=== PATIENT | male | born 1985 | race Caucasian/White ===

== ENCOUNTER → 2022-05-05 17:11 | Outpatient (CLI) | payer BC, SELFPAY ==
[2022-05-05 18:16] LABS: Basophils # 0.1 K/mm3 (0-0.2); Basophils % 1.2 % (0.1-2.0); Eosinophils # 0.3 K/mm3 (0.0-0.4); Eosinophils % 3.3 % (0.1-12.0); Hematocrit 50.3 % (42.0-52.0); Lymphocytes # 2.1 K/mm3 (0.7-4.5); Lymphocytes % 26.4 % (10-50); Mean Corpuscular HGB Conc 33.8 g/dL (31.8-35.4); Mean Corpuscular Hemoglobin 31.4 pg (27.0-31.2); Mean Platelet Volume 8.5 fl (7.4-10.4); Monocytes # 0.4 K/mm3 (0.1-1.0); Monocytes % 5.3 % (1.7-9.3); Neutrophils % 63.7 % (37.0-80.0); Platelet Count 259 K/mm3 (142-424); Red Blood Count 5.41 M/mm3 (4.60-6.20); Red Cell Distribution Width 13.2 % (11.5-17.5); White Blood Count 7.8 K/mm3 (4.8-10.8)
[2022-05-05 19:03] LABS: Alanine Aminotransferase 96 U/L (12-78); Albumin Level 4.5 g/dl (3.5-5.0); Albumin/Globulin Ratio 1.6 (1.1-1.8); Alkaline Phosphatase 105 U/L (38-126); Anion Gap 9.2 mEq/L (5-15); Aspartate Amino Transferase 100 U/L (17-59); Bilirubin,Total 0.7 mg/dl (0.2-1.3); Blood Urea Nitrogen 9 mg/dl (9-20); Calcium 9.8 mg/dl (8.4-10.2); Carbon Dioxide 34 mmol/L (22.0-30.0); Chloride 99 mmol/L (98-107); Chol/HDL Ratio 5.1 (1-3.5); Cholesterol 219 mg/dl (140-200); Estimated Glomerular Filt Rate 152 ml/min (>60); GFR (African American) 183 ML/MIN (>60); Globulin 2.9 g/dL (1.3-3.2); Glucose 213 mg/dl (74-100); HDL Cholesterol 43 mg/dl (40-60); Potassium 4.2 mmoL/L (3.5-5.1); Sodium 138 mmol/L (136-145); Total Protein,Serum 7.4 g/dl (6.3-8.2); Triglycerides 240 mg/dl (30-150); VLDL Cholesterol 48 mg/dL (0-40)
[2022-05-07 09:35] LABS: Direct LDL Cholesterol 126 mg/dL (100-129)
== END ==
PROVIDERS: Student in an Organized Health Care Education/Training Program; PCP Family Medicine; Visit Provider Family Medicine
DX: Z76.89 Persons encountering health services in other specified circumstances (principal); I10 Essential (primary) hypertension; E78.5 Hyperlipidemia, unspecified; R73.03 Prediabetes
CPT/HCPCS: 80053; 80061; 85025

== ENCOUNTER → 2022-05-12 06:30 | Outpatient (CLI) | payer BC, SELFPAY ==
[2022-05-12 20:29] LABS: Hemoglobin A1C 8.3 % (4.0-6.0)
== END ==
PROVIDERS: PCP Family Medicine; Visit Provider Student in an Organized Health Care Education/Training Program
DX: E11.9 Type 2 diabetes mellitus without complications (principal); Z79.84 Long term (current) use of oral hypoglycemic drugs
CPT/HCPCS: 83036

== ENCOUNTER 2023-09-06 10:12 | Emergency (ER) | payer BC, SELFPAY ==
[2023-09-06 10:12] VITALS: BP 164/104; PULSE 109; RESP 18; TEMP 36.9; O2SAT 97; BMI 33.4
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
--- NOTE | 2023-09-06 10:20 | PC.NURSE ---
PT gone to CT via stretcher
--- NOTE | 2023-09-06 10:22 | PC.NURSE ---
PT TO CT
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
--- NOTE | 2023-09-06 10:57 | PC.NURSE ---
PT DOES NOT WANT AN IV HE REQUEST MEDS BY MOUTH . SPOKE WITH DR CEDILLO SHE IS AWARE
--- NOTE | 2023-09-06 11:14 | PC.NURSE ---
Shahram calling to speak with Dr Espinoza
--- NOTE | 2023-09-06 11:16 | PC.NURSE ---
DR CEDILLO AT BEDSIDE TO UPDATE PT AND FAMILY
[2023-09-06 11:19] VITALS: BP 155/106; PULSE 94; O2SAT 97
[2023-09-06 11:27] VITALS: BP 155/106; PULSE 94; RESP 18; TEMP 36.7; O2SAT 98
== END 2023-09-06 11:27 | disposition home or self-care (01) ==
PROVIDERS: Emergency Provider Emergency Medicine; PCP Family Medicine
DX: S16.1XXA Strain of muscle, fascia and tendon at neck level, initial encounter (principal); M25.561 Pain in right knee; V57.5XXA Driver of pick-up truck or van injured in collision with fixed or stationary object in traffic accident, initial encounter; I10 Essential (primary) hypertension; E78.5 Hyperlipidemia, unspecified; R73.03 Prediabetes
CPT/HCPCS: 70450; 71250; 72125; 72128; 73562; 96374; 99285

== ENCOUNTER 2024-04-01 10:29 | Outpatient (CLI) | payer OTHER, SELFPAY ==
[2024-04-01 11:12] LABS: Basophils # 0.1 K/mm3 (0-0.2); Basophils % 1.2 % (0.1-2.0); Eosinophils # 0.1 K/mm3 (0.0-0.4); Eosinophils % 2.1 % (0.1-12.0); Hemoglobin 15.4 g/dL (14.1-18.0); Lymphocytes # 1.9 K/mm3 (0.7-4.5); Mean Corpuscular HGB Conc 33.5 g/dL (31.8-35.4); Mean Corpuscular Hemoglobin 31.1 pg (27.0-31.2); Mean Corpuscular Volume 92.9 fl (80-94); Mean Platelet Volume 8.1 fl (7.4-10.4); Monocytes # 0.4 K/mm3 (0.1-1.0); Monocytes % 6.4 % (1.7-9.3); Neutrophils # 3.9 K/mm3 (1.8-7.8); Neutrophils % 60.3 % (37.0-80.0); Platelet Count 236 K/mm3 (142-424); Red Blood Count 4.95 M/mm3 (4.60-6.20); Red Cell Distribution Width 13.5 % (11.5-17.5); White Blood Count 6.4 K/mm3 (4.8-10.8)
[2024-04-01 11:43] LABS: Hemoglobin A1C 6.3 % (4.0-6.0)
[2024-04-01 11:59] LABS: Alanine Aminotransferase 29 U/L (12-78); Albumin Level 4.6 g/dl (3.5-5.0); Albumin/Globulin Ratio 1.6 (1.1-1.8); Alkaline Phosphatase 66 U/L (38-126); Anion Gap 11.4 mEq/L (5-15); Aspartate Amino Transferase 28 U/L (17-59); Bilirubin,Total 0.8 mg/dl (0.2-1.3); Blood Urea Nitrogen 15 mg/dl (9-20); Calcium 9.8 mg/dl (8.4-10.2); Carbon Dioxide 29 mmol/L (22.0-30.0); Chloride 103 mmol/L (98-107); Chol/HDL Ratio 4.3 (1-3.5); Cholesterol 213 mg/dl (140-200); Estimated Glomerular Filt Rate 126 ml/min (>60); GFR (African American) 152 ML/MIN (>60); Globulin 2.9 g/dL (1.3-3.2); Glucose 119 mg/dl (74-100); HDL Cholesterol 49 mg/dl (40-60); Potassium 4.4 mmoL/L (3.5-5.1); Sodium 139 mmol/L (136-145); Total Protein,Serum 7.5 g/dl (6.3-8.2); Triglycerides 165 mg/dl (30-150); VLDL Cholesterol 33 mg/dL (0-40)
[2024-04-01 12:11] LABS: Direct LDL Cholesterol 125.73 mg/dL (100-129)
[2024-04-01 12:14] LABS: Free Thyroxine Index 2.5 ug/dL (5.93-13.13); T4 (Thyroxine) 7.2 ug/dl (5.53-11.0); Triiodothryronine (T3) Uptake 35 % (23.5-40.5)
[2024-04-01 12:19] LABS: 25-OH Vitamin D, Total 31.9 ng/mL (30-100)
[2024-04-01 12:28] LABS: Thyroid Stimulating Hormone 0.34 uIU/mL (0.465-4.68)
[2024-04-01 12:32] LABS: Thyroid Stimulating Hormone 0.33 uIU/mL (0.465-4.68)
== END 2024-04-01 23:59 | disposition home or self-care (01) ==
LOC: LAB 10:30
PROVIDERS: PCP Family Medicine; Visit Provider Nurse Practitioner Family
DX: I10 Essential (primary) hypertension (principal); E78.5 Hyperlipidemia, unspecified; E11.9 Type 2 diabetes mellitus without complications; Z79.84 Long term (current) use of oral hypoglycemic drugs; R53.83 Other fatigue; Z68.32 Body mass index [BMI] 32.0-32.9, adult; E66.9 Obesity, unspecified
CPT/HCPCS: 36415; 80050; 80053; 80061; 82306; 83036; 84436; 84443; 84479; 85025

== ENCOUNTER 2025-03-03 09:00 | Outpatient (CLI) | payer OTHER, SELFPAY ==
--- OUTSIDE RECORDS SUMMARY | 2021-12-24 04:13 | XMS_ITS | Continuity of Care Document ---
Author Organization [facility] Address [address] [facility] [address] [place] [address] Phone Care Team Providers Care Sand Temperer Name Role Phone Bandar Nuñez Unavailable Unavailable Allergies, Adverse Reactions, Alerts Substance Reaction Status Criticality No Known Allergies Active No Inform ation Medications Medication Instructions Dosage Effective Dates (start - stop) Status Comments metformin ER 500 mg tablet,extended release 24 hr TAKE 2 TABLET BY MOUTH ONCE DAILY WITH EVENING MEAL - Active dose change atorvastatin 10 mg tablet take 1 tablet by oral route every day 10 MG - Active loratadine 10 mg tablet take 1 tablet by oral route every day for allergies 10 MG - Active montelukast 10 mg tablet TAKE 1 TABLET BY MOUTH ONCE DAILY IN THE EVENING - Active lisinopril 20 mg tablet Take 1 tablet by mouth once daily - Active cholecalciferol (vitamin D3) 125 mcg (5,000 unit) capsule take one capsule daily - Active albuterol sulfate HFA 90 mcg/actuation aerosol inhaler inhale 2 puff by inhalation route every 4 - 6 hours as needed - Active Procedures Procedure Date OFFICE VISIT/EST LEVEL III Rec GUIDO/ARB LDL-C 100-129 MG/DL DIAST BP 80-89 MM HG SYST BP < 130 MM HG Medication Reviewed CBC (NO DIFF)&PLATELET CT METABOLIC PANEL LIPID PANEL GLYCOHEMOGLOBIN(A1C) HIV 1 ANTIGEN W/HIV 1&2 ANTIBODIES Covid-19 [employer] OFFICE VISIT/EST LEVEL III Rec GUIDO/ARB LDL-C 100-129 MG/DL DIAST BP 80-89 MM HG SYST BP < 130 MM HG Medication Reviewed PHQ2 Negative Substance Abuse screening URINE MICROALBUMIN CHEM 8 GLYCOHEMOGLOBIN(A1C) VITAMIN B-12 CHEMISTRY OFFICE VISIT/NEW LEVEL III Rec GUIDO/ARB DIAST BP 80-89 MM HG SYST BP < 130 MM HG Medication Reviewed PHQ2 Negative Brief BH Assessment CBC (NO DIFF)&PLATELET CT METABOLIC PANEL LIPID PANEL TSH GLYCOHEMOGLOBIN(A1C) Vitamin D 3 25 Hydroxy Level METABOLIC PANEL: CHEM 19 LIPID PANEL PREV.VISIT/EST.18-39 YRS OFFICE VISIT/EST LEVEL III CBC (NO DIFF)&PLATELET CT METABOLIC PANEL: CHEM 19 LIPID PANEL TSH Vitamin D 3 25 Hydroxy Level IMMUNIZATION ADM/SNGL TDAP (7+ Yrs) (3) EXMPT (C) OFFICE VISIT/EST LEVEL III METABOLIC PANEL: CHEM 19 LIPID PANEL T-4 FREE TSH Vitamin D 3 25 Hydroxy Level OFFICE VISIT/EST LEVEL III OFFICE VISIT/EST LEVEL III OFFICE VISIT/EST LEVEL III QUICK STREP IMMUNIZATION ADM/SNGL Flu Quad; INJ;Pres Free; 3+ Yrs (C) EXMP T OFFICE VISIT/EST LEVEL III CBC (NO DIFF)&PLATELET CT METABOLIC PANEL: CHEM LIPID PANEL TSH OFFICE VISIT/EST LEVEL III OFFICE VISIT/EST LEVEL III CBC (NO DIFF)&PLATELET CT METABOLIC PANEL: CHEM LIPID PANEL TSH OFFICE VISIT/NEW LEVEL III Advance Directives Directive Yes / No Effective Date File Name No Information Encounters Encounter Description Practice Location Reason(s) For Visit Diagnoses Date Provider Providers Copied on Encounter [facility], [address] [place] [address] [place] [address], [id number], tel:[phone] [facility] No Information 2 Ghassan CFYONI Bandar. [address], [place], [id number] , [place]. tel: [phone] [facility], [address] [place] [address] [place] [address], [id number], tel:[phone] [facility] No Information 1 Ghassan CFYONI Bandar. [address], [place], [id number] , [place]. tel: [phone] OFFICE VISIT/EST LEVEL III [facility], [address] [place] [address] [address], [place], [id number], tel:[phone] [facility] hypertension (chief complaint)flu like (chief complaint) Essential hypertensionIF G (impaired fasting glucose)Screen for STD (sexually transmitted disease)Close exposure to COVID-19 virusBody mass index (BMI) 34.0-34.9, adult - 1 Ghassan CFNP Bandar. [address], [place], [id number] , [place]. tel: [phone] OFFICE VISIT/EST LEVEL III [facility], [address] [facility] [address], [place], [place], [id number], [place] tel:[phone] [facility] Follow Up of hypertension (chief complaint) Dietary counseling and surveillanceEs sential hypertensionIF G (impaired fasting glucose)B12 deficiencyBody mass index (BMI) 35.0-35.9, adult Nov- 1 Ghassan TERESA Holleyin. [address], [place], [id number] , [place]. tel:[phone] OFFICE VISIT/NEW LEVEL III [facility], [address] [facility] [address], [place], [place], [id number], [place] tel:[phone] [facility] transferring back (chief complaint)hyp ertension (chief complaint) Dietary counseling and surveillanceEs sential hypertensionEn vironmental allergiesIFG (impaired fasting glucose)Vitami n D deficiencyBody mass index (BMI) 35.0-35.9, adult 0 Ghassan TERESA Portillo. [address], [place], [id number] , [place]. tel:[phone] PREV.VISIT/E ST.18-39 YRS [facility], [address] [facility] [address], [place], [place], [id number], [place] tel:[phone] [facility] hypertension (chief complaint)pre ventive exam (chief complaint) Physical exam, annualEssentia l (primary) hypertensionCh ronic bilateral low back pain without sciaticaBody mass index (BMI) 33.0-33.9, adult Jul- 7 Ghassan TERESA Holleyin. [address], [place], [id number] , [place]. tel: [phone] OFFICE VISIT/EST LEVEL III [facility], [address] [facility] [address], [place], [place], [id number], [place] tel:[phone] [facility] hypertension (chief complaint) Essential (primary) hypertensionVi tamin D deficiency 7 Ghassan TERESA Holleyin. [address], [place], [id number] , [place]. tel: [phone] [facility], [address] [facility] [address], [place], [place], [id number], [place] tel:[phone] [facility] Atypical nevi 7 Ghassan CFNP Bandar. [address], [place], [id number] , [place]. tel: [phone] OFFICE VISIT/EST LEVEL III [facility], [address] [facility] [address], [place], [place], [id number], [place] tel:[phone] [facility] mole check (chief complaint) Atypical neviDiscolored nails 7 Ghassan CFNP Bandar. [address], [place], [id number] , [place]. tel: [phone] OFFICE VISIT/EST LEVEL III [facility], [address] [facility] [address], [place], [place], [id number], [place] tel:[phone] [facility] hypertension (chief complaint)dis cuss weight (chief complaint) Essential (primary) hypertensionWh eezingMorbid obesity due to excess calories 7 Ghassan CFNP Bandar. [address], [place], [id number] , [place]. tel: [phone] OFFICE VISIT/EST LEVEL III [facility], [address] [facility] [address], [place], [place], [id number], [place] tel:[phone] [facility] Cough (chief complaint) Acute bronchitis, unspecified organism 6 Ghassan CFNP Bandar. [address], [place], [id number] , [place]. tel: [phone] OFFICE VISIT/EST LEVEL III [facility], [address] [facility] [address], [place], [place], [id number], [place] tel:[phone] [facility] hypertension (chief complaint)sor e throat (chief complaint) Acute pharyngitis, unspecifiedEss ential (primary) hypertensionVi ral URIOther viral agents as the cause of diseases classified elsewhere 6 Ghassan CFNP Bandar. [address], [place], [id number] , . tel:[phone] OFFICE VISIT/EST LEVEL III [facility], [address] [facility] [address], [place], [place], [id number], tel:[phone] [facility] hypertension (chief complaint) Essential (primary) hypertension 6 Ghassan CFNP Bandar. [address], [place], [id number] , . tel:[phone] OFFICE VISIT/EST LEVEL III [facility], [address] [facility] [address], [place], [place], [id number], [place] tel:[phone] [facility] Follow Up of hypertension (chief complaint) Essential (primary) hypertension 6 Ghassan CFNP Bandar. [address], [place], [id number] , [place]. [phone] OFFICE VISIT/EST LEVEL III [facility], [address] [facility] [address], [place], [place], [id number], [place] tel:[phone] [facility] asthma (chief complaint)hyp ertension (chief complaint) Essential hypertensionWh eezing without diagnosis of asthma 6 Ghassan CFNP Bandar. [address], [place], [id number] , [place]. tel:[phone] OFFICE VISIT/NEW LEVEL III [facility], [address] [facility] [address], [place], [place], [id number], tel:[phone] [facility] tooth abscess (chief complaint) No Information 3 Ghassan CFNP Bandar. [address], [place], [id number] , [place]. tel:[phone] Family History Family Member Type Diagnosis Age At Onset Problem (finding) Family history of Diabe hansa mellitus Immunizations Vaccine Date Status Comments Tdap (Adacel) administered Source: New Im munization Record Influenza, injectable, quadrivalent, preservative free, 3 yrs or older administered Source: New Immuniz ation Record Payers Payer name Insurance type Covered alliance party ID Authoriza tion(s) [employer] CI [id number] [facility] [id number] [employer] Medicaid CI [id number] [facility] [id number] [employer] CI [id number] [facility] [id number] Social History Type Description Quantity Date Captured Comments Alcohol Use Details Unknown Caffeine Use Details Unknown Tobacco Use Status No Information Smoking Status No Information Sex Male Chief Complaint And Reason For Visit No Information Reason For Referral Reason For Referral No Information Plan Of Treatment Date Type Action Status Goal Lipid panel. Due on due Goal Fluzone Quad Syringe. Due on due Goal Tdap. Due on due Goal HIV Screen due Goal Influenza vaccine. Due on due Goal H&P. Due on due Goal Depression screening. Due on due Goal Lipid panel. Due on due Goal Depression screening. Due on due Goal H&P. Due on due Goal Influenza vaccine. Due on due Goal Tdap. Due on due Goal Fluzone Quad Syringe. Due on due Goal Fluzone Quad Syringe. Due on due Goal Tdap. Due on due Goal Lipid panel. Due on 025 due Goal Depression screening. Due on due Goal HIV Screen. Due on due Goal Influenza vaccine. Due on due Goal Lifestyle education regardin g diet completed Goal Influenza vaccine. Due on Oc due Goal HIV Screen. Due on 20 due Goal Depression screening. Due on due Goal Fluzone Quad Syringe. Due on due Goal Tdap. Due on due Goal Lipid panel. Due on 022 due Goal Depression screening. Due on due Goal Tdap. Due on due Goal Tdap. Due on due Goal Tdap. Due on due Referral Referred To: Physical Therapy Ordered: Referrals: Physical Therapy. Location: [facility]. Evaluate and treat ordered Referral Referred To: [facility] Ordered: Referrals: Dermatology. [facility]. Location: [place]. Evaluate and treat ordered Referral Referred To: Eric Poon MD [address] [place] [address], [phone] Ordered: Referrals: Dermatology. Eric Poon MD. Evaluate and treat ordered History Of Present Illness Encounter Date Complaint History Of Prese nt Illness hypertension It is currently stable. Risk factors include inactive lifestyle, male gender and obesity. Pertinent negatives include chest pain, dyspnea, fatigue, headache, hematuria, irregular heartbeat/palpitations, nausea, tremor and vomiting. flulike I was sick for about 3 days earlier this week with the flu - achey, tired, had a slight fever - he also was exposed to covid last week - his father is hospitalized with covid. Follow Up of hypertension It is currently improving. Risk factors include inactive lifestyle, male gender and obesity. Pertinent negatives include chest pain, dyspnea, fatigue, headache, irregular heartbeat/palpitations, nausea, tremor and visual disturbances. Additional information: feel better - got more energy hypertension It is currently stable. Risk factors include inactive lifestyle, male gender and obesity. Pertinent negatives include chest pain, dyspnea, fatigue, headache, hematuria, irregular heartbeat/palpitations, nausea, tremor, visual disturbances and vomiting. transferring back hypertension It is currently stable. Risk factors include inactive lifestyle, male gender and obesity. Pertinent negatives include chest pain, diaphoresis, dyspnea, fatigue, headache, irregular heartbeat/palpitations, nausea and visual disturbances. preventive exam Men's preventive visit. hypertension It is currently stable. Risk factors include inactive lifestyle, male gender and obesity. Pertinent negatives include chest pain, dyspnea, fatigue, headache, irregular heartbeat/palpitations, nausea and visual disturbances. mole check Concerned about mole on his back and also spots on his toe nails hypertension It is currently stable. Risk factors include inactive lifestyle, male gender and obesity. The hypertension is exacerbated by stress. Pertinent negatives include chest pain, dyspnea, fatigue, headache, nausea and visual disturbances. discuss weight He is trying to eat right he stopped drinking pop 5 days ago I'm trying to eat less candy Cough Onset: 1 week ag o. The patient describes the cough as moist and productive (of yellow sputum). It occurs persistently. The problem has become gradually worse. Context: allergies and sick family member. Associated symptoms include cough, dyspnea on exertion, fatigue, post-nasal drainage, sore throat and wheezing. Pertinent negatives include chills, dyspnea and fever. hypertension It is currently stable. Risk factors include inactive lifestyle, male gender and obesity. Pertinent negatives include chest pain, dyspnea, fatigue, headache, hematuria, irregular heartbeat/palpitations, nausea and visual disturbances. sore throat Onset: 1 day ago . There is no cough present. It occurs persistently. The problem has become gradually worse. Context: sick family member. Associated symptoms include nasal congestion, post-nasal drainage, rhinitis and sore throat. Pertinent negatives include chills, cough, dyspnea, fatigue, fever, sinus pressure and wheezing. hypertension Risk factors inc lude inactive lifestyle, male gender and obesity. Follow Up of hypertension It is currently improving. Risk factors include inactive lifestyle, male gender and obesity. Pertinent negatives include chest pain, dyspnea, fatigue, headache, nausea and visual disturbances. asthma The initial visi t date was 11/12/2015. Aggravating factors include exercise. Additional information: pt states he had an asthma attack last night. I think I got too hot . hypertension It is currently a new diagnosis. Risk factors include inactive lifestyle, male gender and obesity. Associated symptoms include headache. Pertinent negatives include chest pain, dyspnea, fatigue, irregular heartbeat/palpitations, nausea and visual disturbances. Additional information: pt states bp has been running high at home - usually 145-155 over 100 Functional Status Date Functional Assessmen t No Information Instructions Date Instruction Additional Infor mattraci Activity counseling provided Rel ated to Essential hypertension Decrease caffeine intake Related to Essential hypertension Take Medication as prescribed Re lated to Essential hypertension Dietary counseling provided Rela waylon to Essential hypertension Check BP daily at ho ak and keep log to bring to visits Related to Essential hypertension Lifestyle education regarding di et Related to Dietary counseling and surveillance Giving encouragement to exercise Related to Dietary counseling and surveillance Activity counseling provided Rel ated to Essential hypertension Dietary counseling provided Rela waylon to Essential hypertension Check BP daily at ho ak and keep log to bring to visits Related to Essential hypertension Decrease caffeine intake Related to Essential hypertension Take Medication as prescribed Re lated to Essential hypertension ok to wean off of buproprion Rel ated to Essential hypertension Activity counseling provided Rel ated to Essential hypertension Dietary counseling provided Rela waylon to Essential hypertension Check BP daily at ho ak and keep log to bring to visits Related to Essential hypertension Decrease caffeine intake Related to Essential hypertension Take Medication as prescribed Re lated to Essential hypertension Activity counseling provided Rel ated to Essential (primary) hypertension Increase activity. Related to Ph ysical exam, annual Eat more fruits/vegg ies/high fiber foods Related to Physical exam, annual Check BP daily at ho me and keep log to bring to visits Related to Essential (primary) hypertension Decrease caffeine intake Related to Essential (primary) hypertension Take Medication as prescribed Re lated to Essential (primary) hypertension Dietary counseling provided Rela waylon to Essential (primary) hypertension Take Medication as prescribed Re lated to Essential (primary) hypertension Activity counseling provided Rel ated to Essential (primary) hypertension Dietary counseling provided Rela waylon to Essential (primary) hypertension Check BP daily at ho me and keep log to bring to visits Related to Essential (primary) hypertension Decrease caffeine intake Related to Essential (primary) hypertension Take Medication as prescribed Re lated to Essential (primary) hypertension Discussed healthy ea ting and increasing activity Related to Morbid obesity due to excess calories Check BP daily at ho me and keep log to bring to visits Related to Essential (primary) hypertension Activity counseling provided Rel ated to Essential (primary) hypertension Dietary counseling provided Rela waylon to Essential (primary) hypertension Decrease caffeine intake Related to Essential (primary) hypertension If symptoms persist or worsen, return to office Related to Acute bronchitis, unspecified organism Rest, fluids, tyleno l or motrin prn fever or discomfort Related to Acute bronchitis, unspecified organism If symptoms persist or worsen, return to office Related to Viral URI Rest, fluids, tyleno l or motrin prn fever or discomfort Related to Viral URI Take Medication as prescribed Re lated to Essential (primary) hypertension Decrease caffeine intake Related to Essential (primary) hypertension Check BP daily at ho me and keep log to bring to visits Related to Essential (primary) hypertension Dietary counseling provided Rela waylon to Essential (primary) hypertension Activity counseling provided Rel ated to Essential (primary) hypertension Recommend gargling Related to Ac [place] pharyngitis, unspecified Activity counseling provided Rel ated to Essential (primary) hypertension Dietary counseling provided Rela waylon to Essential (primary) hypertension Check BP daily at ho me and keep log to bring to visits Related to Essential (primary) hypertension Decrease caffeine intake Related to Essential (primary) hypertension Take Medication as prescribed Re lated to Essential (primary) hypertension Dietary counseling provided Rela waylon to Essential (primary) hypertension Activity counseling provided Rel ated to Essential (primary) hypertension Check BP daily at ho me and keep log to bring to visits Related to Essential (primary) hypertension Decrease caffeine intake Related to Essential (primary) hypertension Take Medication as prescribed Re lated to Essential (primary) hypertension Activity counseling provided Rel ated to Essential hypertension Dietary counseling provided Rela waylon to Essential hypertension Check BP daily at ho me and keep log to bring to visits Related to Essential hypertension Decrease caffeine intake Related to Essential hypertension Take Medication as prescribed Re lated to Essential hypertension avoid cigarette smoke Related to Wheezing without diagnosis of asthma Take antibiotic until gone Relat ed to Dental disease Assessments Type Assessment Date No Information Patient Care Teams Name Effective Dates (start - stop) Status Members No Information
[2025-03-03 17:15] LABS: Basophils % 0.6 % (0.1-2.0); Eosinophils # 0.2 Kmm3 (0.0-0.4); Eosinophils % 4.8 % (0.1-12.0); Hematocrit 45.8 % (42.0-52.0); Hemoglobin 14.6 g/dL (14.1-18.0); Immature Granulocytes # 0.04 10^3uL; Immature Granulocytes % 0.8 %; Lymphocytes # 1.4 K/mm3 (0.7-4.5); Lymphocytes % 27.7 % (10-50); Mean Corpuscular HGB Conc 31.9 g/dL (31.8-35.4); Mean Corpuscular Hemoglobin 28.7 pg (27.0-31.2); Mean Platelet Volume 10.1 fl (7.4-10.4); Monocytes # 0.7 K/mm3 (0.1-1.0); Monocytes % 14.5 % (1.7-9.3); Neutrophils # 2.6 K/mm3 (1.8-7.8); Neutrophils % 51.6 % (37.0-80.0); Nucleated Red Blood Cells # 0 10^3/uL; Nucleated Red Blood Cells % 0 %; Platelet Count 208 K/mm3 (142-424); Red Blood Count 5.09 M/mm3 (4.60-6.20); Red Cell Distribution Width 12.8 % (11.5-17.5); Red Cell Distribution Width-SD 42.3 fL
[2025-03-03 17:46] LABS: Alanine Aminotransferase 37 U/L (12-78); Albumin Level 4.6 g/dl (3.5-5.0); Albumin/Globulin Ratio 1.6 (1.1-1.8); Alkaline Phosphatase 64 U/L (38-126); Anion Gap 11.7 mEq/L (5-15); Aspartate Amino Transferase 46 U/L (17-59); Bilirubin,Total 0.8 mg/dl (0.2-1.3); Blood Urea Nitrogen 7 mg/dl (9-20); Calcium 8.9 mg/dl (8.4-10.2); Carbon Dioxide 29 mmol/L (22.0-30.0); Chloride 100 mmol/L (98-107); Chol/HDL Ratio 4.5 (1-3.5); Cholesterol 186 mg/dl (140-200); Estimated Glomerular Filt Rate 125 ml/min (>60); GFR (African American) 151 ML/MIN (>60); Globulin 2.8 g/dL (1.3-3.2); Glucose 130 mg/dl (74-100); HDL Cholesterol 41 mg/dl (40-60); Potassium 4.7 mmoL/L (3.5-5.1); Sodium 136 mmol/L (136-145); Total Protein,Serum 7.4 g/dl (6.3-8.2); Triglycerides 160 mg/dl (30-150); VLDL Cholesterol 32 mg/dL (0-40)
[2025-03-03 17:57] LABS: Direct LDL Cholesterol 103.77 mg/dL (100-129)
[2025-03-03 18:03] LABS: T4 (Thyroxine) 6.4 ug/dl (5.53-11.0)
[2025-03-03 18:15] LABS: 25-OH Vitamin D, Total 22.4 ng/mL (30-100)
[2025-03-03 18:16] LABS: Thyroid Stimulating Hormone 0.56 uIU/mL (0.465-4.68)
[2025-03-03 18:36] LABS: Vitamin B12 464 pg/mL (239-931)
[2025-03-03 18:41] LABS: HIV Combo NEGATIVE (Negative)
[2025-03-03 18:48] LABS: Hepatitis C Ab Qual. W/ RFX NEGATIVE (Negative)
[2025-03-05 09:16] LABS: Hepatitis B Surface Antigen Negative (Negative)
== END 2025-03-03 23:59 | disposition home or self-care (01) ==
LOC: LAB.DROPOF 22:27
PROVIDERS: PCP Nurse Practitioner Family; Visit Provider Nurse Practitioner Family
DX: Z11.4 Encounter for screening for human immunodeficiency virus [HIV] (principal); Z11.59 Encounter for screening for other viral diseases; E78.5 Hyperlipidemia, unspecified; I10 Essential (primary) hypertension; R53.83 Other fatigue
CPT/HCPCS: 80053; 80061; 82306; 82607; 84436; 84443; 85025; 86803; 87340; 87389

== ENCOUNTER 2025-07-04 14:40 | Outpatient (CLI) | payer OTHER, SELFPAY ==
--- OUTSIDE RECORDS SUMMARY | 2021-12-24 04:13 | XMS_ITS | Continuity of Care Document ---
Author Organization [facility] Address [address] [facility] [address] [place] [address] Phone Care Team Providers Care Quarrying Manager Name Role Phone Bandar Nuñez Unavailable Unavailable [...] Diagnoses Date Provider Providers Copied on Encounter [facility], [address] [place] [address] [place] [address], [id number], tel:[phone] [facility] No Information 2 Ghassan CFYONI Bandar. [address] [place], [place], [id number] , [place]. tel: [phone] [facility], [address] [place] [address] [place] [address], [id number], tel:[phone] [facility] No Information 1 Ghassan CFYONI Bandar. [address] [place], [place], [id number] , [place]. tel: [phone] OFFICE VISIT/EST LEVEL III [facility], [address] [place] [address] [address], [place], [id number], tel:[phone] [facility] hypertension (chief complaint)flu like (chief complaint) Essential hypertensionIF G (impaired fasting glucose)Screen for STD (sexually transmitted disease)Close exposure to COVID-19 virusBody mass index (BMI) 34.0-34.9, adult - 1 Ghassan CFNP Bandar. [address] [place], [place], [id number] , [place]. tel: [phone] OFFICE VISIT/EST LEVEL III [facility], [address] [facility] [address], [place], [place], [id number], [place] tel:[phone] [facility] Follow Up of hypertension (chief complaint) Dietary counseling and surveillanceEs sential hypertensionIF G (impaired fasting glucose)B12 deficiencyBody mass index (BMI) 35.0-35.9, adult Nov- 1 Ghassan TERESA Holleyin. [address] [place] [address], [place], [id number] , [place]. tel:[phone] OFFICE VISIT/NEW LEVEL III [facility], [address] [facility] [address], [place], [place], [id number], [place] tel:[phone] [facility] transferring back (chief complaint)hyp ertension (chief complaint) Dietary counseling and surveillanceEs sential hypertensionEn vironmental allergiesIFG (impaired fasting glucose)Vitami n D deficiencyBody mass index (BMI) 35.0-35.9, adult 0 Ghassan TERESA Portillo. [address] [place] [address], [place], [id number] , [place]. tel:[phone] PREV.VISIT/E ST.18-39 YRS [facility], [address] [facility] [address], [place], [place], [id number], [place] tel:[phone] [facility] hypertension (chief complaint)pre ventive exam (chief complaint) Physical exam, annualEssentia l (primary) hypertensionCh ronic bilateral low back pain without sciaticaBody mass index (BMI) 33.0-33.9, adult Jul- 7 Ghassan TERESA Holleyin. [address] [place], [place], [id number] , [place]. tel: [phone] OFFICE VISIT/EST LEVEL III [facility], [address] [facility] [address], [place], [place], [id number], [place] tel:[phone] [facility] hypertension (chief complaint) Essential (primary) hypertensionVi tamin D deficiency 7 Ghassan TERESA Holleyin. [address] [place], [place], [id number] , [place]. tel: [phone] [facility], [address] [facility] [address], [place], [place], [id number], [place] tel:[phone] [facility] Atypical nevi 7 Ghassan CFNP Bandar. [address] [place], [place], [id number] , [place]. tel: [phone] OFFICE VISIT/EST LEVEL III [facility], [address] [facility] [address], [place], [place], [id number], [place] tel:[phone] [facility] mole check (chief complaint) Atypical neviDiscolored nails 7 Ghassan CFNP Bandar. [address], [place], [id number] , [place]. tel: [phone] OFFICE VISIT/EST LEVEL III [facility], [address] [facility] [address], [place], [place], [id number], [place] tel:[phone] [facility] hypertension (chief complaint)dis cuss weight (chief complaint) Essential (primary) hypertensionWh eezingMorbid obesity due to excess calories 7 Ghassan CFNP Bandar. [address] [place], [place], [id number] , [place]. tel: [phone] OFFICE VISIT/EST LEVEL III [facility], [address] [facility] [address], [place], [place], [id number], [place] tel:[phone] [facility] Cough (chief complaint) Acute bronchitis, unspecified organism 6 Ghassan CFNP Bandar. [address] [place], [place], [id number] , [place]. tel: [phone] OFFICE VISIT/EST LEVEL III [facility], [address] [facility] [address], [place], [place], [id number], [place] tel:[phone] [facility] hypertension (chief complaint)sor e throat (chief complaint) Acute pharyngitis, unspecifiedEss ential (primary) hypertensionVi ral URIOther viral agents as the cause of diseases classified elsewhere 6 Ghassan CFNP Bandar. [address] [place], [place], [id number] , . tel:[phone] OFFICE VISIT/EST LEVEL III [facility], [address] [facility] [address], [place], [place], [id number], tel:[phone] [facility] hypertension (chief complaint) Essential (primary) hypertension 6 Ghassan CFNP Bandar. [address] [place], [place], [id number] , . tel:[phone] OFFICE VISIT/EST LEVEL III [facility], [address] [facility] [address], [place], [place], [id number], [place] tel:[phone] [facility] Follow Up of hypertension (chief complaint) Essential (primary) hypertension 6 Ghassan CFNP Bandar. [address] [place], [place], [id number] , [place]. [phone] OFFICE VISIT/EST LEVEL III [facility], [address] [facility] [address], [place], [place], [id number], [place] tel:[phone] [facility] asthma (chief complaint)hyp ertension (chief complaint) Essential hypertensionWh eezing without diagnosis of asthma 6 Ghassan CFNP Bandar. [address] [place], [place], [id number] , [place]. tel:[phone] OFFICE VISIT/NEW LEVEL III [facility], [address] [facility] [address], [place], [place], [id number], tel:[phone] [facility] tooth abscess (chief complaint) No Information 3 Ghassan CFNP Bandar. [address] [place] [address], [place], [id number] , [place]. tel:[phone] Family History Family Member Type Diagnosis Age At Onset Problem (finding) Family history of Diabe hansa mellitus Immunizations Vaccine Date Status Comments Tdap (Adacel) administered Source: New Im munization Record Influenza, injectable, quadrivalent, preservative free, 3 yrs or older administered Source: New Immuniz ation Record Payers Payer name Insurance type Covered alliance party ID Authoriza tion(s) [employer] CI [id number] [facility] [id number] [employer] CI [id number] [facility] [id number] [employer] CI [id number] [facility] [id number] Social History Type Description Quantity Date Captured Comments Alcohol Use Details Unknown Caffeine Use Details Unknown Tobacco Use Status No Information Smoking Status No Information Sex Male Chief Complaint And Reason For Visit No Information Reason For Referral Reason For Referral No Information Plan Of Treatment Date Type Action Status Goal H&P. Due on due Goal Influenza vaccine. Due on due Goal HIV Screen due Goal Tdap. Due on due Goal Fluzone Quad Syringe. Due on due Goal Lipid panel. Due on due Goal Depression screening. Due on due Goal Depression screening. Due on due Goal Lipid panel. Due on 025 due Goal Fluzone Quad Syringe. Due on due Goal Tdap. Due on due Goal Influenza vaccine. Due on due Goal H&P. Due on due Goal HIV Screen. Due on due Goal Influenza vaccine. Due on due Goal Fluzone Quad Syringe. Due on due Goal Tdap. Due on due Goal Lipid panel. Due on due Goal Depression screening. Due on due Goal Lifestyle education regardin g diet completed Goal Depression screening. Due on due Goal HIV Screen. Due on 20 due Goal Influenza vaccine. Due on due Goal Fluzone Quad Syringe. Due on due Goal Tdap. Due on due Goal Lipid panel. Due on 022 due Goal Depression screening. Due on due Goal Tdap. Due on due Goal Tdap. Due on due Goal Tdap. Due on due Referral Referred To: Physical Therapy Ordered: Referrals: Physical Therapy. Location: [facility]. Evaluate and treat ordered Referral Referred To: [facility] Ordered: Referrals: Dermatology. [facility]. Location: [facility]. Evaluate and treat ordered Referral Referred To: Eric Poon MD [address] [place] [address], [phone] Ordered: Referrals: Dermatology. Eric Poon MD. Evaluate and treat ordered History Of Present Illness Encounter Date Complaint History Of Prese nt Illness flulike I was sick for about 3 days earlier this week with the flu - achey, tired, had a slight fever - he also was exposed to covid last week - his father is hospitalized with covid. hypertension It is currently stable. Risk factors include inactive lifestyle, male gender and obesity. Pertinent negatives include chest pain, dyspnea, fatigue, headache, hematuria, irregular heartbeat/palpitations, nausea, tremor and vomiting. Follow Up of hypertension It is currently [...] tremor, visual disturbances and vomiting. transferring back preventive exam Men's preventive visit. hypertension It is currently stable. Risk factors include inactive lifestyle, male gender and obesity. Pertinent negatives include chest pain, diaphoresis, dyspnea, fatigue, headache, irregular heartbeat/palpitations, nausea and visual disturbances. hypertension It is currently stable. Risk factors [...] No Information Instructions Date Instruction Additional Infor elizabeth Check BP daily at [facility] and keep log to bring to visits Related to Essential hypertension Decrease caffeine intake Related to Essential hypertension Take Medication as prescribed Re lated to Essential hypertension Activity counseling provided Rel ated to Essential hypertension Dietary counseling provided Rela waylon to Essential hypertension Lifestyle education regarding di et Related to Dietary counseling and surveillance Giving encouragement to exercise Related to Dietary counseling and surveillance Activity counseling provided Rel ated to Essential hypertension Dietary counseling provided Rela waylon to Essential hypertension Check BP daily at [facility] and keep log to bring to visits Related to Essential hypertension Decrease caffeine intake Related to Essential hypertension Take Medication as prescribed Re lated to Essential hypertension ok to wean off of buproprion Rel ated to Essential hypertension Activity counseling provided Rel ated to Essential hypertension Dietary counseling provided Rela waylon to Essential hypertension Check BP daily at [facility] and keep log to bring to visits Related to Essential hypertension Decrease caffeine intake Related to Essential hypertension Take Medication as prescribed Re lated to Essential hypertension Eat more fruits/vegg ies/high fiber foods Related to Physical exam, annual Increase activity. Related to Ph ysical exam, annual Check BP daily at [facility] and keep log to bring to visits Related to Essential (primary) hypertension Decrease caffeine intake Related to Essential (primary) hypertension Take Medication as prescribed Re lated to Essential (primary) hypertension Activity counseling provided Rel ated to Essential (primary) hypertension Dietary counseling provided Rela waylon to Essential (primary) hypertension Dietary counseling provided Rela waylon to Essential (primary) hypertension Check BP daily at [facility] and keep log to bring to visits Related to Essential (primary) hypertension Decrease caffeine intake Related to Essential (primary) hypertension Take Medication as prescribed Re lated to Essential (primary) hypertension Activity counseling provided Rel ated to Essential (primary) hypertension Activity counseling provided Rel ated to Essential (primary) hypertension Dietary counseling provided Rela waylon to Essential (primary) hypertension Take Medication as prescribed Re lated to Essential (primary) hypertension Discussed healthy ea ting and increasing activity Related to Morbid obesity due to excess calories Check BP daily at [facility] and keep log to bring to visits Related to Essential (primary) hypertension Decrease caffeine intake Related to Essential (primary) hypertension Rest, fluids, tyleno l or motrin prn fever or discomfort Related to Acute bronchitis, unspecified organism If symptoms persist or worsen, return to office Related to Acute bronchitis, unspecified organism Recommend gargling Related to Ac peterson pharyngitis, unspecified Activity counseling provided Rel ated to Essential (primary) hypertension Dietary counseling provided Rela waylon to Essential (primary) hypertension Check BP daily at [facility] and keep log to bring to visits Related to Essential (primary) hypertension Decrease caffeine intake Related to Essential (primary) hypertension Take Medication as prescribed Re lated to Essential (primary) hypertension Rest, fluids, tyleno l or motrin prn fever or discomfort Related to Viral URI If symptoms persist or worsen, return to office Related to Viral URI Activity counseling provided Rel ated to Essential (primary) hypertension Dietary counseling provided Rela waylon to Essential (primary) hypertension Check BP daily at [facility] and keep log to bring to visits Related to Essential (primary) hypertension Decrease caffeine intake Related to Essential (primary) hypertension Take Medication as prescribed Re lated to Essential (primary) hypertension Take Medication as [...] Decrease caffeine intake Related to Essential hypertension Activity counseling provided Rel ated to Essential hypertension Take Medication as prescribed Re lated to Essential hypertension avoid cigarette smoke Related to Wheezing without diagnosis of asthma Take antibiotic until gone Relat ed to Dental disease Assessments Type Assessment Date No Information Patient Care Teams Name Effective Dates (start - stop) Status Members No Information
[2025-07-04 19:31] LABS: Hematocrit 44.4 % (42.0-52.0); Hemoglobin 14.3 g/dL (14.1-18.0); Immature Granulocytes % 0.5 %; Mean Corpuscular HGB Conc 32.2 g/dL (31.8-35.4); Mean Corpuscular Hemoglobin 29.4 pg (27.0-31.2); Mean Corpuscular Volume 91.2 fl (80-94); Nucleated Red Blood Cells % 0 %; Platelet Count 237 K/mm3 (142-424); Red Blood Count 4.87 M/mm3 (4.60-6.20); Red Cell Distribution Width-SD 40.8 fL; White Blood Count 8.7 K/mm3 (4.8-10.8)
[2025-07-04 20:08] LABS: Albumin Level 4.3 g/dl (3.5-5.0); Chloride 98 mmol/L (98-107); Potassium 4.4 mmoL/L (3.5-5.1); Sodium 138 mmol/L (136-145)
[2025-07-04 20:11] LABS: Alanine Aminotransferase 21 U/L (12-78); Albumin/Globulin Ratio 1.4 (1.1-1.8); Alkaline Phosphatase 79 U/L (38-126); Anion Gap 16.4 mEq/L (5-15); Aspartate Amino Transferase 32 U/L (17-59); Bilirubin,Total 0.8 mg/dl (0.2-1.3); Blood Urea Nitrogen 10 mg/dl (9-20); Carbon Dioxide 28 mmol/L (22.0-30.0); Creatinine,Serum 0.70 mg/dl (0.66-1.25); Estimated Glomerular Filt Rate 125 ml/min (>60); GFR (African American) 151 ML/MIN (>60); Globulin 3.1 g/dL (1.3-3.2); Total Protein,Serum 7.4 g/dl (6.3-8.2)
[2025-07-04 20:12] LABS: Calcium 8.6 mg/dl (8.4-10.2); Glucose 65 mg/dl (74-100)
[2025-07-04 20:50] LABS: 25-OH Vitamin D, Total 55.1 ng/mL (30-100)
[2025-07-04 21:13] LABS: Hemoglobin A1C 6.0 % (4.0-6.0)
--- OUTSIDE RECORDS SUMMARY | 2025-07-05 14:05 | XMS_ITS | Patient Health Record ---
Author Organization [facility] Address [address] [place] [id number] Care Team Providers Care [employer] Repairer Name Role Phone Keith Tapia Primary Care Provider [phone] Reason For Referral No Information Social History Sex Assigned At : Social History Observation Description Sex Assigned At Male Plan Of Treatment No Information Insurance Providers Payer Name Payer Address Payer Phone Subscriber Number Group Number Insured Name Patient Relationship to Insured Coverage Start Date Coverage End Date [facility] [place] [facility] [address] [place] [address] [id number] Self - patient is the insured 1 [employer] [place] [address] [place] [phone] [id number] Be Trujillo Self - patient is the insured 1
== END 2025-07-04 23:59 | disposition home or self-care (01) ==
LOC: LAB.DROPOF 07-05 13:58
PROVIDERS: PCP Nurse Practitioner Family; Visit Provider Nurse Practitioner Family
DX: E78.5 Hyperlipidemia, unspecified (principal); I10 Essential (primary) hypertension; E11.9 Type 2 diabetes mellitus without complications; E55.9 Vitamin D deficiency, unspecified
CPT/HCPCS: 80053; 82306; 83036; 85025